=== PATIENT | male | born 1955 | race Caucasian/White ===

== ENCOUNTER 2016-05-07 14:07 | Inpatient (IN) ==
[2016-05-07] MEDS ORDERED: *HR* OxyCODONE ER (12 HR) 10 MG TABLET PO SCH (17:15)
[2016-05-07] MEDS ORDERED: Promethazine/Codeine Oral Sryup 5 ML UDC GTUBE PRN (17:15)
[2016-05-07] MEDS ORDERED: MOM Conc 10 ML UD.LIQ PO PRN (17:16)
[2016-05-07] MEDS ORDERED: Ondansetron 4 MG/2 ML VIAL IVP PRN (17:16)
[2016-05-07] MEDS ORDERED: Naloxone 0.4 MG/ML INJ IVP PRN (17:16)
[2016-05-07] MEDS ORDERED: *HR* OxyCODONE Immed Rel 5 MG TABLET PO PRN (17:16)
--- NOTE | 2016-05-07 17:35 | Internal Med History&Physical ---
Date of Encounter: 05/07/16 Time of Encounter: 15:45 Internal Medicine - H&P: HPI Chief complaint: SOB. Admitted From: Hospital to Hospital Transfer Plans for Post Hospital Care: Transfer Detention Facility History of present illness: Mr. Leonard is a 60 year old male resident of a SNF with chronic respiratory failure s/p tracheostomy, quadriplegic, s/p PEG transferred from [facility] on account of SOB, as per sign out, he has been sick for a couple of weeks and has received multiple courses of antibiotics, shortness of breath has been reported. There is also report of increased discharge from his tracheostoma. He feeds by PEG tube, nothing by mouth. I have no record of prior antibiotic use. He is verbal but had to understand, history is thus limited. I am unbale to comple a ROS. I am informed he is FULL CODE. His facesheet does not list a NOK/ POA, however, Boy Duncan (unknown relationship) is listed as his emergency contact ([phone]). Source: old records reviewed Medical history: Reports: hypertension, other Surgical history: Reports: tracheostomy, other (PEG) Psychiatric history: Reports: depression Smoking Status: Unknown if ever smoked Alcohol use: Reports: unknown Drug use: Reports: unknown Family History: unable to obtain due to patient's status. ROS: Unable to complete ROS due to patient's status. Vital Signs Temperature 98.8 F 05/07/16 10:20 Pulse Rate 111 05/07/16 10:20 Respiratory Rate 18 05/07/16 10:20 Blood Pressure 76/60 05/07/16 10:20 O2 Sat by Pulse Oximetry 90 L 05/07/16 10:20 Temperature 98.8 F 05/07/16 10:25 Pulse Rate 106 05/07/16 13:51 Respiratory Rate 18 05/07/16 13:51 Blood Pressure 124/62 05/07/16 13:51 O2 Sat by Pulse Oximetry 99 05/07/16 13:51 O/E: Not in distress, purulent discharge from tracheostoma HEENT: pale+, anicteric, afebrile, acyanotic, no JND Chest: Coarse breath sounds, right upper and lower zone coarse crackles, transmitted breath sounds, reduced air entry in same lung zones. Fine crackles in left lower zone. Heart: RRR, HS1/2, no murmur Abdomen: PEG tube in place, stoma site is dry, marginal erythema with distinct rash, soft, distended (chronic), tympanic to percussion, he says it is mild tender on palpation, no masses. 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 He did not move amNo decubitus. Onychogryphosis/ onychomycosis, small ulcers at the knuckles of the feet. Extremities: pedal edema 3+, up to groin bilaterally, difficult to palpate pedal pulses through edema, faintly palpable. Lab Results 05/07/16 05/07/16 05/07/16 Range/Units 11:10 11:10 11:10 WBC 7.5 (4.3-11.1) K/mcL RBC 3.04 L (4.19-5.50) M/mcL Hgb 8.7 L (12.9-16.9) g/dL Hct 28.3 L (37.5-50.1) % MCV 93.1 (83.0-100.0) fL MCH 28.6 (28.0-33.3) pg MCHC 30.7 L (31.6-35.5) g/dL RDW 16.4 H (11.5-14.5) % Plt Count 298 (140-400) K/mcL MPV 8.9 L (9.4-12.4) fL Immature Gran % 2.5 (0-4) % Seg Neutrophils % 66.4 % Lymphocytes % 18.2 % Monocytes % 10.2 % Eosinophils % 2.3 % Basophils % 0.4 % Neutrophils # 5.0 (1.6-8.9) K/mcL Lymphocytes # 1.4 (0.6-4.6) K/mcL Monocytes # 0.8 (0.0-1.3) K/mcL Eosinophils # 0.2 (0.0-0.6) K/mcL Basophils # 0.0 (0.0-0.2) K/mcL Nucleated RBCs/100 WBC 0.3 H (0) /100 WBC PT 13.9 H (9.4-12.1) Seconds INR 1.3 APTT 35.6 (26.0-36.0) Seconds ABG pH (7.32-7.45) pH Units ABG pCO2 (35-45) mmHg ABG pO2 (85-104) mmHg ABG HCO3 (21-27) mEQ/L ABG Total CO2 (20-26) mEq/L ABG O2 Saturation (95-98) % ABG Base Excess (-2.0 to 3.0) mEq/L VBG Lactic Acid (0.5-2.2) mmol/L Sodium 139 (136-145) mEq/L Potassium 4.1 (3.5-4.5) mEq/L Chloride 100 (98-109) mEq/L Carbon Dioxide 30 H (19-29) mEq/L BUN 15 (8-26) mg/dL Creatinine 0.65 L (0.72-1.25) mg/dL Est GFR ( Amer) > 60 (> 60) Est GFR (Non-Af Amer) > 60 (> 60) BUN/Creatinine Ratio 23 (6-26) Glucose 95 (70-99) mg/dL Calculated Osmolality 289 (280-300) Calcium 9.3 (8.6-10.8) mg/dL Phosphorus 3.4 (2.3-4.7) mg/dL Magnesium 2.0 (1.6-2.6) mg/dL Total Bilirubin 0.3 (0.2-1.2) mg/dL Direct Bilirubin 0.2 (0.0-0.5) mg/dL Indirect Bilirubin 0.1 (0.0-1.2) mg/dL AST 18 (5-34) Units/L ALT 15 (0-55) Units/L Alkaline Phosphatase 44 (38-126) Units/L Troponin I (0-0.03) ng/mL B-Natriuretic Peptide (0-100) pg/mL Serum Total Protein 6.3 (6.0-8.3) g/dL Albumin 2.7 L (3.5-5.0) g/dL Globulin 3.6 H (2.4-3.5) g/dL Albumin/Globulin Ratio 0.8 L (1.1-2.2) Urine Color (Yellow) Urine Clarity (Clear) Urine pH (5.0-8.0) pH Units Ur Specific [place] (1.010-1.025) Urine Protein (Neg-Trace) mg/dL Urine Glucose (UA) (Normal) mg/dL Urine Ketones (Negative) mg/dL Urine Blood (Negative) Urine Nitrite (Negative) Urine Bilirubin (Negative) Urine Urobilinogen (Normal) mg/dL Ur Leukocyte Esterase (Negative) Urine Microscopic WBC (0-3) per hpf Ur Culture Indicated? (NO) 05/07/16 05/07/16 05/07/16 Range/Units 11:10 11:10 11:10 WBC (4.3-11.1) K/mcL RBC (4.19-5.50) M/mcL Hgb (12.9-16.9) g/dL Hct (37.5-50.1) % MCV (83.0-100.0) fL MCH (28.0-33.3) pg MCHC (31.6-35.5) g/dL RDW (11.5-14.5) % Plt Count (140-400) K/mcL MPV (9.4-12.4) fL Immature Gran % (0-4) % Seg Neutrophils % % Lymphocytes % % Monocytes % % Eosinophils % % Basophils % % Neutrophils # (1.6-8.9) K/mcL Lymphocytes # (0.6-4.6) K/mcL Monocytes # (0.0-1.3) K/mcL Eosinophils # (0.0-0.6) K/mcL Basophils # (0.0-0.2) K/mcL Nucleated RBCs/100 WBC (0) /100 WBC PT (9.4-12.1) Seconds INR APTT (26.0-36.0) Seconds ABG pH 7.37 (7.32-7.45) pH Units ABG pCO2 53 H (35-45) mmHg ABG pO2 174 H (85-104) mmHg ABG HCO3 31.4 H (21-27) mEQ/L ABG Total CO2 33.0 H (20-26) mEq/L ABG O2 Saturation 100 H (95-98) % ABG Base Excess 6.2 H (-2.0 to 3.0) mEq/L VBG Lactic Acid 1.2 (0.5-2.2) mmol/L Sodium (136-145) mEq/L Potassium (3.5-4.5) mEq/L Chloride (98-109) mEq/L Carbon Dioxide (19-29) mEq/L BUN (8-26) mg/dL Creatinine (0.72-1.25) mg/dL Est GFR ( Amer) (> 60) Est GFR (Non-Af Amer) (> 60) BUN/Creatinine Ratio (6-26) Glucose (70-99) mg/dL Calculated Osmolality (280-300) Calcium (8.6-10.8) mg/dL Phosphorus (2.3-4.7) mg/dL Magnesium (1.6-2.6) mg/dL Total Bilirubin (0.2-1.2) mg/dL Direct Bilirubin (0.0-0.5) mg/dL Indirect Bilirubin (0.0-1.2) mg/dL AST (5-34) Units/L ALT (0-55) Units/L Alkaline Phosphatase (38-126) Units/L Troponin I 0.00 (0-0.03) ng/mL B-Natriuretic Peptide 112 H (0-100) pg/mL Serum Total Protein (6.0-8.3) g/dL Albumin (3.5-5.0) g/dL Globulin (2.4-3.5) g/dL Albumin/Globulin Ratio (1.1-2.2) Urine Color (Yellow) Urine Clarity (Clear) Urine pH (5.0-8.0) pH Units Ur Specific [place] (1.010-1.025) Urine Protein (Neg-Trace) mg/dL Urine Glucose (UA) (Normal) mg/dL Urine Ketones (Negative) mg/dL Urine Blood (Negative) Urine Nitrite (Negative) Urine Bilirubin (Negative) Urine Urobilinogen (Normal) mg/dL Ur Leukocyte Esterase (Negative) Urine Microscopic WBC (0-3) per hpf Ur Culture Indicated? (NO) 05/07/16 Range/Units 11:40 WBC (4.3-11.1) K/mcL RBC (4.19-5.50) M/mcL Hgb (12.9-16.9) g/dL Hct (37.5-50.1) % MCV (83.0-100.0) fL MCH (28.0-33.3) pg MCHC (31.6-35.5) g/dL RDW (11.5-14.5) % Plt Count (140-400) K/mcL MPV (9.4-12.4) fL Immature Gran % (0-4) % Seg Neutrophils % % Lymphocytes % % Monocytes % % Eosinophils % % Basophils % % Neutrophils # (1.6-8.9) K/mcL Lymphocytes # (0.6-4.6) K/mcL Monocytes # (0.0-1.3) K/mcL Eosinophils # (0.0-0.6) K/mcL Basophils # (0.0-0.2) K/mcL Nucleated RBCs/100 WBC (0) /100 WBC PT (9.4-12.1) Seconds INR APTT (26.0-36.0) Seconds ABG pH (7.32-7.45) pH Units ABG pCO2 (35-45) mmHg ABG pO2 (85-104) mmHg ABG HCO3 (21-27) mEQ/L ABG Total CO2 (20-26) mEq/L ABG O2 Saturation (95-98) % ABG Base Excess (-2.0 to 3.0) mEq/L VBG Lactic Acid (0.5-2.2) mmol/L Sodium (136-145) mEq/L Potassium (3.5-4.5) mEq/L Chloride (98-109) mEq/L Carbon Dioxide (19-29) mEq/L BUN (8-26) mg/dL Creatinine (0.72-1.25) mg/dL Est GFR ( Amer) (> 60) Est GFR (Non-Af Amer) (> 60) BUN/Creatinine Ratio (6-26) Glucose (70-99) mg/dL Calculated Osmolality (280-300) Calcium (8.6-10.8) mg/dL Phosphorus (2.3-4.7) mg/dL Magnesium (1.6-2.6) mg/dL Total Bilirubin (0.2-1.2) mg/dL Direct Bilirubin (0.0-0.5) mg/dL Indirect Bilirubin (0.0-1.2) mg/dL AST (5-34) Units/L ALT (0-55) Units/L Alkaline Phosphatase (38-126) Units/L Troponin I (0-0.03) ng/mL B-Natriuretic Peptide (0-100) pg/mL Serum Total Protein (6.0-8.3) g/dL Albumin (3.5-5.0) g/dL Globulin (2.4-3.5) g/dL Albumin/Globulin Ratio (1.1-2.2) Urine Color Yellow (Yellow) Urine Clarity Clear (Clear) Urine pH 7.0 (5.0-8.0) pH Units Ur Specific [place] 1.010 (1.010-1.025) Urine Protein 30 H (Neg-Trace) mg/dL Urine Glucose (UA) Normal (Normal) mg/dL Urine Ketones Negative (Negative) mg/dL Urine Blood Negative (Negative) Urine Nitrite Negative (Negative) Urine Bilirubin Negative (Negative) Urine Urobilinogen Normal (Normal) mg/dL Ur Leukocyte Esterase Negative (Negative) Urine Microscopic WBC 0-3 (0-3) per hpf Ur Culture Indicated? NO (NO) CT chest Apical predominant bullous emphysema with multifocal pneumonia. Bilateral lower lobe consolidation with air bronchograms and volume loss, likely pneumonia and atelectasis. Patchy airspace disease/ pneumonia in the right upper lobe and middle lobe. IMP Multifocal pneumonia, most consistent with aspiration pneumonia Sinus tachycardia SIRS. Moderate malnutrition, with hypoalbuminemia and hypoprotenemia Chronic morbidities Quadriplegia Chronic respiratory failure s/p tracheostomy HTN S/P PEG Depression. Chronic pedal edema related to recumbency and hypoalbuminemia PLAN Admit oXYGEN SUPPLEMENTATION IV Zosyn and Levaquin Pulmonary toiletting, deep trachea suction Albuterol and Duonebs. kEEP npo, no feeds by PEG d5 RL @ 100 Elevate head of bed, aspiration precaution Air matress. Montemayor insert. Continue other medications for chronic morbidities Oral hygiene Contipation, GI and DVT prophylaxis Patient is high risk for acute on chronic respiratory failure, he has aspiration related multi-focal pneumonia. Past Med Surg Social Fam HX - Past Medical History Medical history: hypertension, other Psychiatric history: depression - Past Surgical History Surgical History: tracheostomy, other (PEG) - Social History Smoking Status: Unknown if ever smoked Alcohol use: unknown Drug use: unknown Internal Medicine - H&P: Meds Acetaminophen [Children's Acetaminophen] 650 mg GTUBE Q4H PRN 07/29/15 [History] Guaifenesin/D-Methorphan Hb/PE [Tussi-Pres Liquid Packet] 10 ml GTUBE Q6H [History] Polyethylene Glycol 3350 [MiraLAX Powder Bulk 17.9 Oz] 1 scoop GTUBE DAILY 07/28 [History] Promethazine/Phenyleph/Codeine [Yjvyqjbuifgi-YC-Tntpyyw Syrup] 5 ml GTUBE Q4H [History] Sertraline [Zoloft] 150 mg GTUBE DAILY 07/29/15 [History] Simvastatin [Zocor] 20 mg GTUBE HS 07/29/15 [History] Theanine [Vitamelts Relax] 200 mg GTUBE BID 07/29/15 [History] Acetylcysteine 10% 2 ml IH [id number] inhsol 08/10/15 [Rx] Aspirin 81 mg GTUBE DAILY tab.chew 08/10/15 [Rx] Ipratropium/Albuterol Neb [Duoneb] 3 ml IH Q4HWA #180 inhsol 08/10/15 [Rx] Lansoprazole [Prevacid] 30 mg GTUBE QAM capsule. 08/10/15 [Rx] Metoprolol [Lopressor] 12.5 mg GTUBE BID tablet 08/10/15 [Rx] Potassium Effervescent [Klyte] 25 meq GTUBE BID tablet.eff 08/10/15 [Rx] Alprazolam [Xanax 1 MG Tablet] 1 mg GTUBE TID 05/07/16 [History] BuPROPion [Wellbutrin] 100 mg GTUBE BID 05/07/16 [History] CefTRIAXone [Rocephin] 1,000 mg IM DAILY 05/07/16 [History] Cyclobenzaprine [Flexeril] 5 mg PO TID 05/07/16 [History] Fenofibric Acid (Choline) [Trilipix] 135 mg GTUBE DAILY 05/07/16 [History] Naproxen [Naprosyn] 500 mg PO BID 05/07/16 [History] Oxycodone HCl [Oxycontin] 10 mg PO Q4H 05/07/16 [History] Ranitidine HCl [Zantac] 150 mg GTUBE BID 05/07/16 [History] Allergies acetaminophen [From Darvocet-N] Allergy (Verified 07/29/15 13:52) Hives propoxyphene [From Darvocet-N] Allergy (Verified 07/29/15 13:52) Hives All Systems PM: A 10-system review of systems was performed and is negative for pertinent findings except as documented above in the HPI. - Constitutional Vitals: Temp Pulse Resp BP Pulse Ox 97.2 F L 112 20 109/65 95 05/07/16 15:50 05/07/16 15:50 05/07/16 15:50 05/07/16 15:50 05/07/16 15:50
[2016-05-07] MEDS: Ipratropium/Albuterol Neb 3 ML IH SCH (17:48)
[2016-05-07] MEDS: D5% in Lactated Ringers 1,000 ML IVC SCH (18:19)
[2016-05-07] MEDS: *HR* Morphine 2 MG/ML SYRINGE IVP PRN (18:19)
[2016-05-07] MEDS: Acetylcysteine 10% 4 ML INHSOL IH SCH (19:55)
[2016-05-07] MEDS: Albuterol 2.5 MG/3 ML NEBULIZER IH PRN (19:55)
[2016-05-07] MEDS: Bisacodyl 10 MG RECTAL SUPPOSITORY RC SCH (20:40)
[2016-05-07] MEDS: ALPRAZolam 1 MG TABLET GTUBE SCH (20:51)
[2016-05-08] MEDS: Ipratropium/Albuterol Neb 3 ML IH SCH ×5 (00:39→21:54)
[2016-05-08] MEDS: Acetylcysteine 10% 4 ML INHSOL IH SCH ×6 (00:39→21:55)
[2016-05-08] MEDS: Piperacillin/Tazobactam 3.375 GM in D5% in Water (Mini-Bag+) 100 ML IVPB SCH ×3 (00:40→16:23)
[2016-05-08] MEDS: D5% in Lactated Ringers 1,000 ML IVC SCH (04:10)
[2016-05-08] MEDS: *HR* Enoxaparin 40 MG/0.4 ML SYRINGE SQ SCH (06:10)
[2016-05-08] MEDS: Albuterol 2.5 MG/3 ML NEBULIZER IH PRN (07:56)
--- NOTE | 2016-05-08 08:28 | Internal Med Progress Note ---
<Mio Patrida - Last Filed: 05/08/16 11:11> Date of Encounter: 05/08/16 Time of Encounter: 08:28 - Assessment and plan (1) HCAP (healthcare-associated pneumonia) Current Visit: Yes Status: Acute Assessment and plan: From NH, CT chest showed multifocal pneumonia, HCAP vs aspiration, hx of intubation and aspiration issue, no leukocytosis from initial lab but he refused to get blood draw this AM per nurse, could not obtain CBC and blood cultures, con't IV abxs of levaquin and zosyn for now, sputum culture from few days ago positive for pseudomonas, sensitive to zosyn. (2) History of aspiration pneumonia Current Visit: Yes Status: Acute Assessment and plan: Unfortunately recurrent issue for him due to his other comorbidities, elevate head of bed, slow PEG tube feeding. (3) History of tracheostomy Current Visit: No Status: Chronic Assessment and plan: Per [facility] record, he was having discharge from tracheostoma but now stopped, con't IV abxs. (4) PEG (percutaneous endoscopic gastrostomy) status Current Visit: No Status: Chronic Assessment and plan: To avoid aspiration issue, slow infusion of tube feeding. (5) DVT prophylaxis Current Visit: No Status: Acute Assessment and plan: Lovenox SQ. - Subjective Interval history: Pt seen and examined, A and Ox0, likely has baseline dementia, poor historian, cannot answer simple questions or follow commands. - Constitutional Vitals: Temp Pulse Resp BP Pulse Ox 97.2 F L 110 16 110/69 94 L 05/08/16 07:00 05/08/16 07:00 05/08/16 07:00 05/08/16 07:00 05/08/16 07:00 General appearance: Present: A&O X 0, no acute distress. Absent: cooperative, answers questions appropriately - Head Head exam: Present: atraumatic, normocephalic - Eye Eye exam: Present: PERRL, conjuntiva pink, sclera anicteric Pupils: Present: PERRL - Neck Neck exam general surgery: Present: supple, trachea midline. Absent: lymphadenopathy - Respiratory Respiratory exam: Present: decreased breath sounds (diffusely b/l). Absent: accessory muscle use, rales, rhonchi, wheezes - Cardiovascular Cardiovascular exam: Present: RRR, +S1, +S2. Absent: diastolic murmur, gallop, rubs, systolic murmur - GI/Abdominal GI/Abdominal exam: Present: normal bowel sounds, soft, no peritoneal signs. Absent: distended, tenderness - Extremities Exam Extremities exam: Present: warm, radial pulses palpable and symetrical. Absent : calf tenderness, cyanotic, pedal edema - Neurological Exam Neurological exam: Absent: alert, oriented X3, pronater drift, facial droop, speech deficit - Skin Skin exam: Present: dry, intact Consult Discharge Plan - Plan Referrals: NO,PCP [Primary Care Provider] - <Mariusz Mauro - Last Filed: 05/08/16 17:31> Date of Encounter: 05/08/16 - Assessment and plan (1) Pneumonia due to Pseudomonas aeruginosa Current Visit: Yes Status: Suspected Assessment and plan: Culture of secretions from stoma grew Pseudomonas so will cover for this with pneumonia. (2) Aspiration pneumonia Current Visit: No Status: Suspected Qualifiers: Aspiration pneumonia type: unspecified Laterality: bilateral Lung location: unspecified part of lung Qualified Code(s): J69.0 - Pneumonitis due to inhalation of food and vomit (3) History of tracheostomy Current Visit: No Status: Chronic (4) PEG (percutaneous endoscopic gastrostomy) status Current Visit: No Status: Chronic (5) History of quadriplegia Current Visit: No Status: Chronic - Constitutional Vitals: Temp Pulse Resp BP Pulse Ox 97.5 F L 111 16 106/65 94 L 05/08/16 17:08 05/08/16 17:08 05/08/16 17:08 05/08/16 17:08 05/08/16 17:08 Internal Medicine: Result - Labs CBC & Chem 7: 05/08/16 12:23 Labs: Short CBC 05/08/16 Range/Units 12:23 WBC 5.9 (4.3-11.1) K/mcL Hgb 8.8 L (12.9-16.9) g/dL Hct 28.0 L (37.5-50.1) % Plt Count 296 (140-400) K/mcL Neutrophils # 5.4 (1.6-8.9) K/mcL - Attending Attestation I examined this patient and my medical decision-making was reviewed with the Resident Physician on 05/08/16. I agree with the documented findings, disposition and treatment plan as described except to the extent set forth below. Mr. Leonard is currently admitted for acute HCAP and possible aspiration pneumonia. He is moderate to high risk due to the potential of worsening respiratory symptoms and failure. Mr Leonard is alert but very difficult to understand. He says no to questions of pain. No drainage from stoma. No fever. Exam Alert. Difficult to understand (baseline) Mucus membranes dry Heart reg Lungs with rhonchi bilaterally I/P 1. Acute HCAP - most likely gram neg or aspiration pneumonia 2. Quadriplegia 3. trach 4. PEG Further diagnoses and plan as above.
[2016-05-08] MEDS ORDERED: Fenofibrate 54 MG TABLET PO SCH (09:00)
[2016-05-08] MEDS: Aspirin 81 MG TAB.CHEW GTUBE SCH (10:08)
[2016-05-08] MEDS: ALPRAZolam 1 MG TABLET GTUBE SCH ×3 (10:08→20:36)
[2016-05-08] MEDS: Levofloxacin 500 MG/100 ML 500 MG/100 ML BAG IVPB SCH (10:08)
[2016-05-08] MEDS: *HR* Morphine 2 MG/ML SYRINGE IVP PRN ×3 (10:10→22:17)
[2016-05-08 12:39] LABS: Hemoglobin 8.8 g/dL (12.9-16.9); Mean Corpuscular HGB Conc 31.4 g/dL (31.6-35.5); Mean Corpuscular Hemoglobin 28.3 pg (28.0-33.3); Mean Platelet Volume 8.4 fL (9.4-12.4); Nucleated Red Blood Cells 0.3 /100 WBC (0); Platelet Count 296 K/mcL (140-400); Red Blood Count 3.11 M/mcL (4.19-5.50); Red Cell Distribution Width 16.4 % (11.5-14.5)
[2016-05-08 13:00] LABS: Basophils # 0.1 K/mcL (0.0-0.2); Lymphocytes # 0.3 K/mcL (0.6-4.6); Monocytes # 0.2 K/mcL (0.0-1.3); Neutrophils # 5.4 K/mcL (1.6-8.9); Platelet Estimate Normal (Normal)
[2016-05-08] MEDS: Bisacodyl 10 MG RECTAL SUPPOSITORY RC SCH (20:38)
[2016-05-09] MEDS: Acetylcysteine 10% 4 ML INHSOL IH SCH ×7 (00:02→23:48)
[2016-05-09] MEDS: Piperacillin/Tazobactam 3.375 GM in D5% in Water (Mini-Bag+) 100 ML IVPB SCH ×2 (00:51→08:33)
[2016-05-09] MEDS: *HR* Morphine 2 MG/ML SYRINGE IVP PRN ×4 (02:49→18:50)
[2016-05-09] MEDS: Ipratropium/Albuterol Neb 3 ML IH SCH ×4 (04:30→23:47)
[2016-05-09] MEDS: *HR* Enoxaparin 40 MG/0.4 ML SYRINGE SQ SCH (06:06)
[2016-05-09] MEDS: Albuterol 2.5 MG/3 ML NEBULIZER IH PRN ×2 (07:53→20:46)
[2016-05-09] MEDS: ALPRAZolam 1 MG TABLET GTUBE SCH ×3 (08:31→21:59)
[2016-05-09] MEDS: Levofloxacin 500 MG/100 ML 500 MG/100 ML BAG IVPB SCH (08:32)
[2016-05-09] MEDS: Aspirin 81 MG TAB.CHEW GTUBE SCH (08:32)
[2016-05-09] MEDS: Cefepime HCl 2,000 MG in D5% in Water (Mini-Bag+) 100 ML IVPB SCH ×2 (12:00→17:21)
[2016-05-09] MEDS: MetroNIDAZOLE 500 MG/100 ML 500 MG/100 ML BAG IVPB SCH ×2 (12:01→17:21)
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
--- NOTE | 2016-05-09 15:33 | Internal Med Progress Note ---
<Mio Partida - Last Filed: 05/09/16 15:30> Date of Encounter: 05/09/16 Time of Encounter: 15:30 - Assessment and plan (1) HCAP (healthcare-associated pneumonia) Current Visit: Yes Status: Acute Assessment and plan: From [place], CT chest showed multifocal pneumonia, HCAP vs aspiration, hx of intubation and aspiration issue, sputum culture from 05/07 showed pseudomonas and serratia, both sensitive to cefepime so will switch to this medicine, also put him on flagyl to cover anaerobic infection, clinically doing better. (2) History of aspiration pneumonia Current Visit: Yes Status: Acute Assessment and plan: Unfortunately recurrent issue for him due to his other comorbidities, elevate head of bed, slow PEG tube feeding, palliative consulted. (3) History of tracheostomy Current Visit: No Status: Chronic Assessment and plan: Per [place] record, he was having discharge from tracheostoma but now stopped, con't IV abxs. He is DNRCCA but intubaton is fine. (4) PEG (percutaneous endoscopic gastrostomy) status Current Visit: No Status: Chronic Assessment and plan: To avoid aspiration issue, slow infusion of tube feeding. (5) DVT prophylaxis Current Visit: No Status: Acute Assessment and plan: Lovenox SQ. - Subjective Interval history: Pt seen and examined, A and Ox2, better mentation than yesterday, denies any pains or complaints at this time. - Constitutional Vitals: Temp Pulse Resp BP Pulse Ox 99.7 F H 114 18 104/73 95 05/09/16 15:04 05/09/16 15:04 05/09/16 15:04 05/09/16 15:04 05/09/16 15:04 General appearance: Present: A&O X 2, no acute distress, answers questions appropriately (somewhat) - Head Head exam: Present: atraumatic, normocephalic - Eye Eye exam: Present: PERRL, conjuntiva pink, sclera anicteric Pupils: Present: PERRL - Neck Neck exam general surgery: Present: supple, trachea midline. Absent: lymphadenopathy - Respiratory Respiratory exam: Present: decreased breath sounds (at base b/l). Absent: accessory muscle use, rales, rhonchi, wheezes - Cardiovascular Cardiovascular exam: Present: RRR, +S1, +S2. Absent: diastolic murmur, gallop, rubs, systolic murmur - GI/Abdominal GI/Abdominal exam: Present: normal bowel sounds, soft, no peritoneal signs. Absent: distended, tenderness - Extremities Exam Extremities exam: Present: pedal edema (+2 pitting b/l), warm, radial pulses palpable and symetrical. Absent: calf tenderness, cyanotic - Neurological Exam Neurological exam: Present: CN II-XII intact, oriented X3, no focal deficits. Absent: pronater drift, facial droop, speech deficit - Skin Skin exam: Present: dry, intact Internal Medicine: Result - Labs CBC & Chem 7: 05/08/16 12:23 Consult Discharge Plan - Plan Referrals: NO,PCP [Primary Care Provider] - <Mariusz Mauro - Last Filed: 05/09/16 18:14> Date of Encounter: 05/09/16 - Assessment and plan (1) Pneumonia due to Pseudomonas aeruginosa Current Visit: Yes Status: Acute (2) Pneumonia Current Visit: Yes Status: Acute Assessment and plan: On IV abx to cover Pseudomonas and Serratia. Qualifiers: Pneumonia type: due to other aerobic Gram-negative bacteria Laterality: bilateral Lung location: upper lobe of lung Qualified Code(s): J15.6 - Pneumonia due to other aerobic Gram-negative bacteria (3) Aspiration pneumonia Current Visit: Yes Status: Suspected Qualifiers: Aspiration pneumonia type: unspecified Laterality: bilateral Lung location: unspecified part of lung Qualified Code(s): J69.0 - Pneumonitis due to inhalation of food and vomit (4) History of tracheostomy Current Visit: Yes Status: Chronic (5) PEG (percutaneous endoscopic gastrostomy) status Current Visit: No Status: Chronic (6) History of quadriplegia Current Visit: No Status: Chronic - Constitutional Vitals: Temp Pulse Resp BP Pulse Ox 99.7 F H 114 18 104/73 92 L 05/09/16 15:04 05/09/16 15:04 05/09/16 15:46 05/09/16 15:04 05/09/16 15:46 Internal Medicine: Result - Labs CBC & Chem 7: 05/08/16 12:23 - Attending Attestation I examined this patient and my medical decision-making was reviewed with the Resident Physician on 05/09/16. I agree with the documented findings, disposition and treatment plan as described except to the extent set forth below. Mr. Leonard is currently admitted for acute multifocal bilateral pneumonia presumed to be aspiration with sputum positive for Pseudomonas and Serratia. He remains moderate to high risk due to the potential of worsening respiratory status and IV abx Mr. Leonard is more alert today. He is able to answer appropriately. Still with a lot of cough and secretions. Edematous throughout (protein low). Denies pain. Exam Alert. Comfortable Mucus membranes dry No drainage from stoma Heart reg Lungs with scattered rhonchi Diffuse nonpitting edema I/P 1. Acute HCAP - Pseudomonas and serratia - on IV abx. Will need to complete another 7 days after today 2. Quadriplegia Further diagnoses and plan as above. Daughter at bedside and spoke with palliative care regarding code status and he is now DNRCCA. Hopefully he can return to [facility] to complete abx.
[2016-05-09] MEDS: Bisacodyl 10 MG RECTAL SUPPOSITORY RC SCH (22:00)
[2016-05-10] MEDS: Cefepime HCl 2,000 MG in D5% in Water (Mini-Bag+) 100 ML IVPB SCH ×4 (00:32→23:55)
[2016-05-10] MEDS: MetroNIDAZOLE 500 MG/100 ML 500 MG/100 ML BAG IVPB SCH ×5 (00:33→23:57)
[2016-05-10] MEDS: Ipratropium/Albuterol Neb 3 ML IH SCH ×4 (04:35→22:36)
[2016-05-10] MEDS: Acetylcysteine 10% 4 ML INHSOL IH SCH ×6 (04:35→22:36)
[2016-05-10] MEDS: *HR* Enoxaparin 40 MG/0.4 ML SYRINGE SQ SCH (05:11)
[2016-05-10 05:54] LABS: Basophils % 0.6 %; Eosinophils # 0.1 K/mcL (0.0-0.6); Eosinophils % 1.9 %; Hematocrit 27.6 % (37.5-50.1); Hemoglobin 8.9 g/dL (12.9-16.9); Immature Granulocytes % 3.5 % (0-4); Lymphocytes # 0.9 K/mcL (0.6-4.6); Lymphocytes % 13.7 %; Mean Corpuscular HGB Conc 32.2 g/dL (31.6-35.5); Mean Corpuscular Hemoglobin 28.8 pg (28.0-33.3); Mean Corpuscular Volume 89.3 fL (83.0-100.0); Mean Platelet Volume 8.4 fL (9.4-12.4); Monocytes # 0.6 K/mcL (0.0-1.3); Monocytes % 8.1 %; Neutrophils # 4.9 K/mcL (1.6-8.9); Nucleated Red Blood Cells 0.6 /100 WBC (0); Platelet Count 318 K/mcL (140-400); Red Blood Count 3.09 M/mcL (4.19-5.50); Red Cell Distribution Width 16.8 % (11.5-14.5); Segmented Neutrophils % 72.2 %
[2016-05-10 06:04] LABS: BUN/Creatinine Ratio 20 (6-26); Blood Urea Nitrogen 11 mg/dL (8-26); Calcium 8.5 mg/dL (8.6-10.8); Carbon Dioxide 23 mEq/L (19-29); Chloride 108 mEq/L (98-109); Glucose 114 mg/dL (70-99); Osmolality,Calculated 294 (280-300); Potassium 2.9 mEq/L (3.5-4.5); Sodium 142 mEq/L (136-145); eGFR For African Americans > 60 (> 60); eGFR For Non-African Americans > 60 (> 60)
[2016-05-10] MEDS: Albuterol 2.5 MG/3 ML NEBULIZER IH PRN (08:13)
--- NOTE | 2016-05-10 08:29 | Internal Med Progress Note ---
<Mio Partida - Last Filed: 05/10/16 13:54> Date of Encounter: 05/10/16 Time of Encounter: 08:29 - Assessment and plan (1) HCAP (healthcare-associated pneumonia) Current Visit: Yes Status: Acute Assessment and plan: From [place], CT chest showed multifocal pneumonia, HCAP vs aspiration, hx of intubation and aspiration issue, sputum culture from 05/07 showed pseudomonas and serratia, both sensitive to cefepime so will switch to this medicine, also put him on flagyl to cover anaerobic infection, clinically doing better. (2) History of aspiration pneumonia Current Visit: Yes Status: Acute Assessment and plan: Unfortunately recurrent issue for him due to his other comorbidities, elevate head of bed, slow PEG tube feeding, palliative consulted. (3) History of tracheostomy Current Visit: Yes Status: Chronic Assessment and plan: Per [place] record, he was having discharge from tracheostoma but now stopped, con't IV abxs. He is DNRCCA but intubaton is fine. (4) Edema extremities Current Visit: Yes Status: Acute Assessment and plan: Likely 2/2 malnutrition and low protein, third spacing, increase protein intake , nutrition service consulted, check albumin/pre-albumin/phosphate in AM. (5) Hypokalemia Current Visit: Yes Status: Acute Assessment and plan: Likely 2/2 multiple frequent bowel movement, stop dulcolex, replace it, check potassium/mag in AM. (6) DVT prophylaxis Current Visit: No Status: Acute Assessment and plan: Lovenox SQ. - Subjective Interval history: Pt seen and examined, A and Ox2, better mentation than yesterday, denies any pains or complaints at this time. - Constitutional Vitals: Temp Pulse Resp BP Pulse Ox 97.9 F 113 20 105/65 99 05/10/16 04:00 05/10/16 04:00 05/10/16 04:35 05/10/16 04:00 05/10/16 04:35 General appearance: Present: A&O X 2, no acute distress, answers questions appropriately (somewhat) - Head Head exam: Present: atraumatic, normocephalic - Eye Eye exam: Present: PERRL, conjuntiva pink, sclera anicteric Pupils: Present: PERRL - Neck Neck exam general surgery: Present: supple, trachea midline. Absent: lymphadenopathy - Respiratory Respiratory exam: Present: decreased breath sounds (at base b/l). Absent: accessory muscle use, chest wall tenderness, rales, rhonchi, wheezes - Cardiovascular Cardiovascular exam: Present: RRR, +S1, +S2. Absent: diastolic murmur, gallop, rubs, systolic murmur - GI/Abdominal GI/Abdominal exam: Present: normal bowel sounds, soft, no peritoneal signs. Absent: distended, tenderness - Extremities Exam Extremities exam: Present: pedal edema (2+ pitting b/l), warm, radial pulses palpable and symetrical. Absent: calf tenderness, cyanotic - Neurological Exam Neurological exam: Present: CN II-XII intact, no focal deficits. Absent: oriented X3, pronater drift, facial droop, speech deficit - Skin Skin exam: Present: dry, intact Internal Medicine: Result - Labs CBC & Chem 7: 05/10/16 05:43 05/10/16 05:43 Labs: Short CBC 05/10/16 Range/Units 05:43 WBC 6.8 (4.3-11.1) K/mcL Hgb 8.9 L (12.9-16.9) g/dL Hct 27.6 L (37.5-50.1) % Plt Count 318 (140-400) K/mcL Neutrophils # 4.9 (1.6-8.9) K/mcL BMP 05/10/16 05:43 Sodium 142 Potassium 2.9 L D Chloride 108 Carbon Dioxide 23 BUN 11 Creatinine 0.56 L Glucose 114 H Calcium 8.5 L Consult Discharge Plan - Plan Referrals: NO,PCP [Primary Care Provider] - <Mariusz Mauro - Last Filed: 05/10/16 19:00> Date of Encounter: 05/10/16 - Assessment and plan (1) Pneumonia due to Pseudomonas aeruginosa Current Visit: Yes Status: Acute (2) Pneumonia Current Visit: Yes Status: Acute Qualifiers: Pneumonia type: due to other aerobic Gram-negative bacteria Laterality: bilateral Lung location: upper lobe of lung Qualified Code(s): J15.6 - Pneumonia due to other aerobic Gram-negative bacteria (3) Aspiration pneumonia Current Visit: Yes Status: Suspected Qualifiers: Aspiration pneumonia type: unspecified Laterality: bilateral Lung location: unspecified part of lung Qualified Code(s): J69.0 - Pneumonitis due to inhalation of food and vomit (4) History of tracheostomy Current Visit: Yes Status: Chronic (5) PEG (percutaneous endoscopic gastrostomy) status Current Visit: No Status: Chronic (6) History of quadriplegia Current Visit: No Status: Chronic - Constitutional Vitals: Temp Pulse Resp BP Pulse Ox 97.8 F 108 18 94/66 99 05/10/16 15:58 05/10/16 15:58 05/10/16 16:27 05/10/16 15:58 05/10/16 16:27 Internal Medicine: Result - Labs CBC & Chem 7: 05/10/16 05:43 05/10/16 05:43 Labs: Short CBC 05/10/16 Range/Units 05:43 WBC 6.8 (4.3-11.1) K/mcL Hgb 8.9 L (12.9-16.9) g/dL Hct 27.6 L (37.5-50.1) % Plt Count 318 (140-400) K/mcL Neutrophils # 4.9 (1.6-8.9) K/mcL BMP 05/10/16 05:43 Sodium 142 Potassium 2.9 L D Chloride 108 Carbon Dioxide 23 BUN 11 Creatinine 0.56 L Glucose 114 H Calcium 8.5 L - Attending Attestation I examined this patient and my medical decision-making was reviewed with the Resident Physician on 05/10/16. I agree with the documented findings, disposition and treatment plan as described except to the extent set forth below. Mr. Leonard is currently admitted for acute pneumonia presumed aspiration. He remains moderate to high risk due to potential for worsening respiratory distress. Mr. Leonard is more alert and interactive today. He is having some leaking from PEG tube. No pain. Cough better with treatment. On IV abx. He is have a lot of formed stools. Exam Alert. Comfortable Heart reg Lungs with rhonchi Abd soft - bilious drainage around tube. I/P 1. Acute pneumonia 2. Quadriplegia Further diagnoses and plan as above.
[2016-05-10] MEDS: Aspirin 81 MG TAB.CHEW GTUBE SCH (09:28)
[2016-05-10] MEDS: ALPRAZolam 1 MG TABLET GTUBE SCH ×3 (09:29→21:45)
[2016-05-10] MEDS: Potassium Chloride Elixir 20 MEQ/15 ML UDC GTUBE SCH ×2 (09:30→21:47)
[2016-05-10] MEDS ORDERED: *HR* OxyCODONE Immed Rel 5 MG TABLET PO PRN (14:15)
[2016-05-10] MEDS ORDERED: *HR* Morphine 2 MG/ML SYRINGE IVP PRN (14:15)
--- NOTE | 2016-05-10 14:18 | Palliative Progress Note ---
Date of Encounter: 05/10/16 Time of Encounter: 09:30 - Assessment and plan (1) Goals of care, counseling/discussion Current Visit: Yes Status: Acute Assessment and plan: Mr. Leonard plans to return to [facility] when ready for discharge. He will need an additional 7 days of ATB according to hospitalist. Goals of care discussion yesterday-Mr. Leonard has no additional questions. State DNR form completed yesterday. (2) Constipation by delayed colonic transit Current Visit: Yes Status: Acute Assessment and plan: Daily bisacodyl suppository (3) Chronic pain Current Visit: Yes Status: Acute Assessment and plan: Oxycodone 5mg every 6 hours as needed for pain. Use oxycodone as first choice, but may use Morphine for pain uncontrolled by oxycodone. Qualifiers: Qualified Code(s): G89.29 - Other chronic pain (4) HCAP (healthcare-associated pneumonia) Current Visit: Yes Status: Acute Assessment and plan: Management per hospitalist. - Time Spent With Patient Total time spent is greater than 50% in coordination of care (as documented) at patient's floor/unit and/or counseling patient: - Subjective Interval history: Mr. Leonard is sitting up in bed. Reports his chronic "all over" pain. riprap placer present to administer morning medications. - Constitutional Vitals: Abnormal lab results RBC 3.09 M/mcL (4.19-5.50) L 05/10/16 05:43 Hgb 8.9 g/dL (12.9-16.9) L 05/10/16 05:43 Hct 27.6 % (37.5-50.1) L 05/10/16 05:43 RDW 16.8 % (11.5-14.5) H 05/10/16 05:43 MPV 8.4 fL (9.4-12.4) L 05/10/16 05:43 Nucleated RBCs/100 WBC 0.6 /100 WBC (0) H 05/10/16 05:43 Potassium 2.9 mEq/L (3.5-4.5) L D 05/10/16 05:43 Creatinine 0.56 mg/dL (0.72-1.25) L 05/10/16 05:43 Glucose 114 mg/dL (70-99) H 05/10/16 05:43 POC Glucose 111 (58-89) H 05/10/16 03:58 Calcium 8.5 mg/dL (8.6-10.8) L 05/10/16 05:43 General appearance: Present: no acute distress Exam: 60 year old male appearing chronically ill. Incomplete quadraplegia leaves him with uncoordinated gross motor movement to upper extremities - Eye Eye exam: Present: EOMI - Respiratory Respiratory exam: Present: rhonchi. Absent: accessory muscle use, decreased breath sounds, respiratory distress Additional comments: incomplete healing to prior tracheostomy site. Moist non-productive cough. - Cardiovascular Cardiovascular exam: Present: RRR. Absent: tachycardia - GI/Abdominal GI/Abdominal exam: Present: soft. Absent: distended, guarding, tenderness - Extremities Exam Extremities exam: Absent: normal inspection (poor muscle tone) - Neurological Exam Neurological exam: Present: alert, motor sensory deficit (lower extremities) - Skin Skin exam: Present: warm Additional comments: erythema to toes on bilateral feet remains unchanged. Dressing intact to bilateral heels. Palliative Quality Palliative Quality: Screen for Code Status: Yes, Screen for Goals of Care: Yes, Screen for Pain: Yes, If Pain Regimen Started, Initiate Bowel Regimen: Yes, Screen for Nausea/Vomitting: Yes Code Status: 05/07/16 17:16 Resuscitation Status: Active [RES] Routine Comment: Resuscitation Status: Full Code Resuscitation Status: Active [RES] Routine Comment: Resuscitation Status: DNR-Comfort Care-Arrest - Labs CBC & Chem 7: 05/10/16 05:43 05/10/16 05:43 Labs: Laboratory Results - last 24 hr 05/10/16 05/10/16 05/10/16 03:58 05:43 05:43 WBC 6.8 RBC 3.09 L Hgb 8.9 L Hct 27.6 L MCV 89.3 MCH 28.8 MCHC 32.2 RDW 16.8 H Plt Count 318 MPV 8.4 L Immature Gran % 3.5 Seg Neutrophils % 72.2 Lymphocytes % 13.7 Monocytes % 8.1 Eosinophils % 1.9 Basophils % 0.6 Neutrophils # 4.9 Lymphocytes # 0.9 Monocytes # 0.6 Eosinophils # 0.1 Basophils # 0.0 Nucleated RBCs/100 WBC 0.6 H Sodium 142 Potassium 2.9 L D Chloride 108 Carbon Dioxide 23 BUN 11 Creatinine 0.56 L Est GFR ( Amer) > 60 Est GFR (Non-Af Amer) > 60 BUN/Creatinine Ratio 20 Glucose 114 H POC Glucose 111 H Calculated Osmolality 294 Calcium 8.5 L Consult Discharge Plan - Plan Referrals: NO,PCP [Primary Care Provider] -
[2016-05-10] MEDS ORDERED: MOM Conc 10 ML UD.LIQ GTUBE PRN (15:28)
[2016-05-10] MEDS ORDERED: *HR* OxyCODONE Immed Rel 5 MG TABLET GTUBE PRN (15:28)
[2016-05-11] MEDS: Acetylcysteine 10% 4 ML INHSOL IH SCH ×4 (04:12→15:12)
[2016-05-11] MEDS: Ipratropium/Albuterol Neb 3 ML IH SCH ×3 (04:12→15:12)
[2016-05-11] MEDS: MetroNIDAZOLE 500 MG/100 ML 500 MG/100 ML BAG IVPB SCH ×2 (05:19→13:39)
[2016-05-11] MEDS: *HR* Enoxaparin 40 MG/0.4 ML SYRINGE SQ SCH (05:19)
[2016-05-11 06:33] LABS: Alanine Aminotransferase 14 Units/L (0-55); Albumin 2.6 g/dL (3.5-5.0); Albumin/Globulin Ratio 0.8 (1.1-2.2); Alkaline Phosphatase 37 Units/L (38-126); Aspartate Amino Transferase 19 Units/L (5-34); BUN/Creatinine Ratio 25 (6-26); Bilirubin,Total 0.2 mg/dL (0.2-1.2); Blood Urea Nitrogen 14 mg/dL (8-26); Calcium 8.5 mg/dL (8.6-10.8); Carbon Dioxide 22 mEq/L (19-29); Chloride 109 mEq/L (98-109); Globulin 3.4 g/dL (2.4-3.5); Glucose 114 mg/dL (70-99); Osmolality,Calculated 293 (280-300); Potassium 3.8 mEq/L (3.5-4.5); Sodium 141 mEq/L (136-145); eGFR For African Americans > 60 (> 60); eGFR For Non-African Americans > 60 (> 60)
[2016-05-11] MEDS: Albuterol 2.5 MG/3 ML NEBULIZER IH PRN (07:56)
[2016-05-11] MEDS: Aspirin 81 MG TAB.CHEW GTUBE SCH (08:58)
[2016-05-11] MEDS: ALPRAZolam 1 MG TABLET GTUBE SCH ×2 (08:59→15:37)
[2016-05-11] MEDS: Cefepime HCl 2,000 MG in D5% in Water (Mini-Bag+) 100 ML IVPB SCH ×2 (09:00→15:38)
--- NOTE | 2016-05-11 10:34 | Discharge Summary ---
<Mio Partida - Last Filed: 05/11/16 11:41> Date of Encounter: 05/11/16 Time of Encounter: 10:22 - Discharge Diagnosis (1) HCAP (healthcare-associated pneumonia) Priority: Primary Status: Acute (2) History of aspiration pneumonia Priority: Secondary Status: Acute (3) History of tracheostomy Priority: Secondary Status: Chronic (4) Edema extremities Priority: Secondary Status: Acute (5) Hypokalemia Priority: Secondary Status: Acute (6) Recurrent Clostridium difficile diarrhea Priority: Secondary Status: Acute (7) DVT prophylaxis Priority: Secondary Status: Acute - Discharge Medications Prescriptions: Cefepime HCl/D5w [Cefepime-Dextrose 2 gm/50 ml] 2 gm IV Q8H 12 Days MetroNIDAZOLE [Flagyl] 500 mg PO TID 12 Days Home Medications: Acetaminophen [Children's Acetaminophen] 650 mg GTUBE Q4H PRN 07/29/15 [History] Guaifenesin/D-Methorphan Hb/PE [Tussi-Pres Liquid Packet] 10 ml GTUBE Q6H [History] Promethazine/Phenyleph/Codeine [Ehnmslptekku-DO-Vukclhs Syrup] 5 ml GTUBE Q4H [History] Sertraline [Zoloft] 150 mg GTUBE DAILY 07/29/15 [History] Simvastatin [Zocor] 20 mg GTUBE HS 07/29/15 [History] Theanine [Vitamelts Relax] 200 mg GTUBE BID 07/29/15 [History] Acetylcysteine 10% 2 ml IH [id number] inhsol 08/10/15 [Rx] Aspirin 81 mg GTUBE DAILY tab.chew 08/10/15 [Rx] Ipratropium/Albuterol Neb [Duoneb] 3 ml IH Q4HWA #180 inhsol 08/10/15 [Rx] BuPROPion [Wellbutrin] 100 mg GTUBE BID 05/07/16 [History] Cyclobenzaprine [Flexeril] 5 mg GTUBE TID 05/07/16 [History] Fenofibric Acid (Choline) [Trilipix] 135 mg GTUBE DAILY 05/07/16 [History] Ranitidine HCl [Zantac] 150 mg GTUBE BID 05/07/16 [History] Alprazolam [Xanax 1 MG Tablet] 1 mg GTUBE TID PRN #15 tablet 05/11/16 [Rx] Cefepime HCl/D5w [Cefepime-Dextrose 2 gm/50 ml] 2 gm IV Q8H 12 Days 05/11/16 [Rx ] MetroNIDAZOLE [Flagyl] 500 mg PO TID 12 Days 05/11/16 [Rx] Oxycodone HCl [Oxycontin] 10 mg GTUBE Q4H PRN #30 tab.er.12h 05/11/16 [Rx] Polyethylene Glycol 3350 [MiraLAX Powder Bulk 17.9 Oz] 17 g GTUBE DAILY PRN #0 05/11/16 [Rx] Allergies/Adverse Reactions: Allergies acetaminophen [From Darvocet-N] Allergy (Verified 07/29/15 13:52) Hives propoxyphene [From Darvocet-N] Allergy (Verified 07/29/15 13:52) Hives Date of admission: 05/07/16 17:43 Primary care physician: PCP NO Consults: 05/07/16 17:13 Consult to Respiratory Therapy [CONS] Routine Reason for Consult: respiratory care, deep sunctioning Call Completed: No 05/07/16 17:19 Consult to Occupational Therapy [CONS] Routine Comment: Evaluate, develop and implement POC Consult to Physical Therapy [CONS] Routine Comment: Evaluate, develop and implement POC 05/07/16 18:00 Consult to Nutrition [CONS] Routine Comment: Consulting Provider: NUTRITION Reason for Dietary Consult: Supplemental Nutrition Consult to Justice Court Judge [CONS] Routine Reason for SW Consult: from sonal Pool gallo 05/09/16 10:35 Consult to Invasive Line Access Team [CONS] Routine Reason for Consult: POOR ACCESS Line Type: EPIV 05/09/16 11:37 Consult to Palliative Care [CONS] Routine Comment: recurrent aspira PNA, goal of care Consulting Provider: Palliative Care Jayleen Discharging clinician: Mio Partida Anticipated date of discharge: 05/11/16 - Patient Status Disposition: Transfer SNF Condition: Fair Functional capacity at discharge: wheelchair bound (fall precaution, up with assistance) Overall status at discharge: patient is progressing back to baseline - Discharge Instructions Follow Up With: Tahir Welsh MD [Partnered Physician] - (F/u in a week for hospital d/c f/u , f/u on pneumonia and c.diff) - Diet and Activity Activity: wear oxygen at all times Diet: other (tube feeding) Hospital course: Mr. Leonard is a 60 year old male with quadraplegia and dementia who was brought from [place] to ER for SOB and productive cough, he has recurrent issue of aspiration pneumonia, last year he was intubated in the ICU, peg tube was placed , CT chest showed multifocal pneumonia, sputum culture came back positive of peudomonas and serratia, both sensitive to cefepime therefore it was started, also he was started on flagyl for covering anaerobic organism for risk of aspiration, pt's mentation improved, sepsis resolved, palliative was consulted for goal of care, his code status was changed to DNR CCA, intubation is okay, pt was having multiple loose bowel movement therefore c.diff test was ordered and it came back positive therefore flagyl was con'edmar. This is his 2nd c.diff but it is mild so he will con't po flayl for total of 14days and he will con't cefepime IV for total of [address], therefore he is stable to be d/c today. - Time Spent with Patient Total time spent providing and/or coordinating discharge services: - Constitutional Vitals: Temp Pulse Resp BP Pulse Ox 97.8 F 106 16 120/82 96 05/11/16 07:13 05/11/16 07:13 05/11/16 07:56 05/11/16 07:13 05/11/16 07:56 General appearance: Present: A&O X 2, no acute distress, answers questions appropriately (somewhat) - Head Head exam: Present: atraumatic, normocephalic - Eye Eye exam: Present: PERRL, conjuntiva pink, sclera anicteric Pupils: Present: PERRL - Neck Neck exam general surgery: Present: supple, trachea midline. Absent: lymphadenopathy - Respiratory Respiratory exam: Present: CTAB. Absent: accessory muscle use, rales, rhonchi, wheezes - Cardiovascular Cardiovascular exam: Present: RRR, +S1, +S2. Absent: diastolic murmur, gallop, rubs, systolic murmur - GI/Abdominal GI/Abdominal exam: Present: normal bowel sounds, soft, no peritoneal signs. Absent: distended, tenderness - Extremities Exam Extremities exam: Present: pedal edema (+2 pitting edema b/l), warm, radial pulses palpable and symetrical. Absent: calf tenderness, cyanotic - Neurological Exam Neurological exam: Present: CN II-XII intact, oriented X3, no focal deficits. Absent: pronater drift, facial droop, speech deficit - Skin Skin exam: Present: dry, intact <Mariusz Mauro A - Last Filed: 05/11/16 15:17> Date of Encounter: 05/11/16 - Discharge Diagnosis (1) Pneumonia due to Pseudomonas aeruginosa Status: Acute (2) Pneumonia Priority: Secondary Status: Acute Qualifiers: Pneumonia type: due to other aerobic Gram-negative bacteria Laterality: bilateral Lung location: upper lobe of lung Qualified Code(s): J15.6 - Pneumonia due to other aerobic Gram-negative bacteria (3) Aspiration pneumonia Priority: Secondary Status: Suspected Qualifiers: Aspiration pneumonia type: unspecified Laterality: bilateral Lung location: unspecified part of lung Qualified Code(s): J69.0 - Pneumonitis due to inhalation of food and vomit (4) Recurrent Clostridium difficile diarrhea Status: Acute (5) History of tracheostomy Status: Chronic (6) PEG (percutaneous endoscopic gastrostomy) status Priority: Secondary Status: Chronic (7) History of quadriplegia Priority: Secondary Status: Chronic (8) Edema due to nutritional deficiency Priority: Secondary Status: Chronic Date of admission: 05/07/16 17:43 Primary care physician: PCP NO Consults: 05/07/16 17:13 Consult to Respiratory Therapy [CONS] Routine Reason for Consult: respiratory care, deep sunctioning Call Completed: No 05/07/16 17:19 Consult to Occupational Therapy [CONS] Routine Comment: Evaluate, develop and implement POC Consult to Physical Therapy [CONS] Routine Comment: Evaluate, develop and implement POC 05/07/16 18:00 Consult to Nutrition [CONS] Routine Comment: Consulting Provider: NUTRITION Reason for Dietary Consult: Supplemental Nutrition Consult to Justice Court Judge [CONS] Routine Reason for SW Consult: from luda gallo 05/09/16 10:35 Consult to Invasive Line Access Team [CONS] Routine Reason for Consult: POOR ACCESS Line Type: EPIV 05/09/16 11:37 Consult to Palliative Care [CONS] Routine Comment: recurrent aspira PNA, goal of care Consulting Provider: Palliative Care [facility] course: Mr. Leonard is a 60 year old male - Time Spent with Patient Total time spent providing and/or coordinating discharge services: 41min - Constitutional Vitals: Temp Pulse Resp BP Pulse Ox 98.6 F 117 14 126/74 95 05/11/16 12:18 05/11/16 12:18 05/11/16 12:18 05/11/16 12:18 05/11/16 12:18 - Attending Attestation I examined this patient and my medical decision-making was reviewed with the Resident Physician on 05/11/16. I agree with the documented findings, disposition and treatment plan as described except to the extent set forth below. Mr. Leonard appears to be at baseline status. He has returned positive for C diff and is on Flagyl. He is afebrile and BP is good today. He is on IV Cefipime for his pneumonia. Exam Alert. Comfortable Heart reg - tachy with movement Lungs with scattered rhonchi Abd soft Non pitting edema noted I/P 1. PNA 2. C diff colitis Plan d/c to ECF today to complete IV abx. Continue PO abx for C diff Medically stable for d/c today.
--- NOTE | 2016-05-11 10:56 | Physician Discharge Referral ---
ExtendedCare Referral Info Transfer To: SNF/ECF Provider in Charge: Dr. Mauro Provider in Charge after Transfer: PCP Institutional Level of Care: Skilled - Diagnosis (1) HCAP (healthcare-associated pneumonia) Priority: Primary Status: Acute (2) History of aspiration pneumonia Status: Acute (3) History of tracheostomy Status: Chronic (4) Edema extremities Status: Acute (5) Hypokalemia Status: Acute (6) Recurrent Clostridium difficile diarrhea Status: Acute (7) DVT prophylaxis Status: Acute - Transfer Medications Prescriptions: Cefepime HCl/D5w [Cefepime-Dextrose 2 gm/50 ml] 2 gm IV Q8H 12 Days MetroNIDAZOLE [Flagyl] 500 mg PO TID 12 Days Home Medications: Acetaminophen [Children's Acetaminophen] 650 mg GTUBE Q4H PRN 07/29/15 [History] Guaifenesin/D-Methorphan Hb/PE [Tussi-Pres Liquid Packet] 10 ml GTUBE Q6H [History] Promethazine/Phenyleph/Codeine [Pcvdeokzjbwq-BW-Eompvgo Syrup] 5 ml GTUBE Q4H [History] Sertraline [Zoloft] 150 mg GTUBE DAILY 07/29/15 [History] Simvastatin [Zocor] 20 mg GTUBE HS 07/29/15 [History] Theanine [Vitamelts Relax] 200 mg GTUBE BID 07/29/15 [History] Acetylcysteine 10% 2 ml IH [id number] inhsol 08/10/15 [Rx] Aspirin 81 mg GTUBE DAILY tab.chew 08/10/15 [Rx] Ipratropium/Albuterol Neb [Duoneb] 3 ml IH Q4HWA #180 inhsol 08/10/15 [Rx] BuPROPion [Wellbutrin] 100 mg GTUBE BID 05/07/16 [History] Cyclobenzaprine [Flexeril] 5 mg GTUBE TID 05/07/16 [History] Fenofibric Acid (Choline) [Trilipix] 135 mg GTUBE DAILY 05/07/16 [History] Ranitidine HCl [Zantac] 150 mg GTUBE BID 05/07/16 [History] Alprazolam [Xanax 1 MG Tablet] 1 mg GTUBE TID PRN #15 tablet 05/11/16 [Rx] Cefepime HCl/D5w [Cefepime-Dextrose 2 gm/50 ml] 2 gm IV Q8H 12 Days 05/11/16 [Rx ] MetroNIDAZOLE [Flagyl] 500 mg PO TID 12 Days 05/11/16 [Rx] Oxycodone HCl [Oxycontin] 10 mg GTUBE Q4H PRN #30 tab.er.12h 05/11/16 [Rx] Polyethylene Glycol 3350 [MiraLAX Powder Bulk 17.9 Oz] 17 g GTUBE DAILY PRN #0 05/11/16 [Rx] Allergies/Adverse Reactions: Allergies acetaminophen [From Darvocet-N] Allergy (Verified 07/29/15 13:52) Hives propoxyphene [From Darvocet-N] Allergy (Verified 07/29/15 13:52) Hives - Respiratory Orders Oxygen / L per min (4) Smoking Cessation: Smoking cessation has been advised. For more information, call the [employer] Quit Line at 5-085-HUTV-NOW. - Ancillary Orders May use pressure relief devices daily prn, May go on [place] w/family/respon constitution party w /meds at nurse discretion PRN, May consult with Dentist, Jailer, Wire Straightening Machine Operator PRN - Advance Directives Code Status: DNR-Arrest - Mobility Orders Bedrest (up with assistace and fall precaution) - Rehabiliation Orders Rehab Potential: Poor Rehab Orders: ROM Exercises, Evaluation for Physical Therapy, Evaluation for Occupational Therapy - Treatments Skin tear care topically daily PRN per policy, May check for fecal impaction rectally daily PRN, Fleet enema rectally every other day PRN cleansing purposes - Diet Orders Tube Feedings (type/amount/rate): Osmolite 1.2 1.0 L bottle continous via PEG at 75ml/hr, free water 100 ml q6hrs CERTIFICATION: I certify that the transfer of the above named patient to an Extended Care Facility is necessary for the continuing treatment of the diagnosis listed. The above information is true and accurate reflection of patient's current condition. Confidential - Redisclosure prohibited without a patient's written consent.
[2016-05-11 15:54] VITALS: BP 139/115
== END 2016-05-11 17:16 | DRG 137 ==
LOC: 2NENU
PROVIDERS: ADMIT Internal Medicine; ATTEND Internal Medicine